=== PATIENT | female | born 1995 | race Caucasian/White ===

== ENCOUNTER 2017-01-12 21:01 | Emergency (ER) | payer BC ==
--- NOTE | 2017-01-12 22:05 | RAD ---
Indication: Right shoulder pain. 3 views of the right shoulder demonstrates no fracture. No other bone or joint abnormality is noted. IMPRESSION: No fracture of the right shoulder.
--- NOTE | 2017-01-12 22:07 | RAD ---
Indication: Right flank pain. 2 views of the right clavicle demonstrates no fracture. No other bone or joint abnormality is noted. IMPRESSION: No fracture of the right clavicle is noted.
--- NOTE | 2017-01-12 22:24 | ED ---
Upper Extremity Pain - HPI Summary HPI Summary: 21 female presents to ED with complaints of injuring her right shoulder while playing [employer]. States she was running when she ran into another player causing her shoulder to twist and get hit, just [employer]. Patient denies any other injuries. Patient has pain with ROM, better with rest. Took a tylenol [employer]. Denies numbness and tingling. PMHx significant for anxiety, depression and asthma. No other complaints at this time. Denies bruising, swelling, redness and is right hand dominant. - History of Current Complaint Chief Complaint: EDShoulderClavicBrentj Stated Complaint: R SHOULDER PAIN Time Seen by Provider: 01/12/17 21:18 Hx Obtained From: Patient Mechanism Of Injury: Blunt Trauma - into another player while running, Twisted Onset/Duration: Started Hours Ago, Traumatic, Still Present, Worse Since Timing: Constant Severity Initially: Moderate Severity Currently: Moderate Pain Location: Shoulder - right Character: Sharp - with movement, Aching Aggravating Factor(s): Movement Alleviating Factor(s): Rest Associated Signs & Symptoms: Positive: Negative Related History: Dominant Hand Right - Allergies/Home Medications Allergies/Adverse Reactions: Allergies Allergy/AdvReac Type Severity Reaction Status Date / Time Amoxicillin [From Augmentin] Allergy Hives Verified 01/12/17 21:11 Clavulanic Acid Allergy Hives Verified 01/12/17 21:11 [From Augmentin] PMH/Surg Hx/FS Hx/Imm Hx Endocrine/Hematology History: Denies: Hx Diabetes Cardiovascular History: Denies: Hx Hypertension Respiratory History: Denies: Hx Asthma - Surgical History Surgery Procedure, Year, and Place: n/a - Immunization History Immunizations Up to Date: Yes Infectious Disease History: No Infectious Disease History: Reports: Traveled Outside the [place] in Last 30 Days - [employer] - Family History Known Family History: Positive: None - Social History Alcohol Use: Occasionally Substance Use Type: Reports: None Smoking Status (MU): Never Smoked Tobacco Review of Systems Constitutional: Negative Cardiovascular: Negative Respiratory: Negative Positive: Arthralgia, Myalgia, Decreased ROM - right shoulder Skin: Negative Neurological: Negative All Other Systems Reviewed And Are Negative: Yes Physical Exam Triage Information Reviewed: Yes Vital Signs On Initial Exam: Initial Vitals Temp Pulse Resp BP Pulse Ox 98.7 F 66 16 104/66 99 01/12/17 21:01/12/17 21:09 01/12/17 21:09 01/12/17 21:01/12/17 21:09 Vital Signs Reviewed: Yes Appearance: Positive: Well-Appearing, Well-Nourished, Pain Distress - mild with movement Skin: Positive: Warm, Skin Color Reflects Adequate Perfusion, Dry. Negative: Cold, Numb, Soft, Pale, Erythema @ Head/Face: Positive: Normal Head/Face Inspection Eyes: Positive: Conjunctiva Clear ENT: Positive: Hearing grossly normal Neck: Positive: Supple, Nontender Respiratory/Lung Sounds: Positive: Clear to Auscultation, Breath Sounds Present. Negative: Rales, Rhonchi, Wheezes Cardiovascular: Positive: Normal, RRR, Pulses are Symmetrical in both Upper and Lower Extremities - CMS intact, 2+ radial b/l. Negative: Murmur, Rub Bowel Sounds: Positive: Present Musculoskeletal: Positive: Strength/ROM Intact - however causes pain with flexion of right arm/shoulder, better and no pain with passive ROM of right UE, Pain @ - tenderness on palpation of right shoulder on top and anteriorly., Other - no sign of ecchymosis, edema, obvious deformity, crepitus or step off. Negative: Limited @, Interruption @, Edema Right Neurological: Positive: Normal, Sensory/Motor Intact - sensation intact, Alert, Oriented to Person Place, Time, Reflexes Intact, NV Bundle Intact Distally, Normal Gait Psychiatric: Positive: Affect/Mood Appropriate Diagnostics - Vital Signs Vital Signs Temp Pulse Resp BP Pulse Ox 01/12/17 21:49 99.2 F 71 18 112/75 99 01/12/17 21:09 98.7 F 66 16 104/66 99 - Laboratory Lab Statement: Any lab studies that have been ordered have been reviewed, and results considered in the medical decision making process. - Radiology right shoulder Xray Interpretation: No Acute Changes - No fracture of the right shoulder. Radiology Interpretation Completed By: Radiologist right clavicle Xray Interpretation: No Acute Changes - No fracture of the right clavicle. Radiology Interpretation Completed By: Radiologist Course/Dx - Course Course Of Treatment: patient given ibuprofen while in ED. x-rays obtained and negative. Appears to be a shoulder sprain according to VASHTI, HPI and PE findings. RICE and NSAIDs. Aware of worsening signs and symptoms to watch out for. Follow up PCP. - Diagnoses Differential Diagnosis/HQI/PQRI: Positive: Contusion, Fracture (Closed), Strain , Sprain, Other - dislocation, ac seperation Provider Diagnoses: Sprain of right shoulder Discharge - Discharge Plan Condition: Stable Disposition: HOME Patient Education Materials: Shoulder Sprain (ED) Forms: *School Release [facility] - Additional Instructions: Continue tylenol and ibuprofen alternating for pain and inflammation. Wear sling until symptoms improve, be sure to take arm out of sling and gently stretch, move around to avoid frozen shoulder. Rest, heat/ice. Follow up with PCP. If symptoms worsen or do not improve please seek medical attention promptly.
[2017-01-12] MEDS ORDERED: Ibuprofen TAB* 400 MG PO ONE (22:43)
[2017-01-12 23:01] VITALS: BP 108/75
== END 2017-01-12 23:00 | disposition home or self-care (01) ==
LOC: ED 21:01
DX: S43.401A Unspecified sprain of right shoulder joint, initial encounter (principal); X58.XXXA Exposure to other specified factors, initial encounter; Y93.79 Activity, other specified sports and athletics; Y92.9 Unspecified place or not applicable
CPT/HCPCS: 99282; A9270-GY